=== PATIENT | female | born 2000 | race American Indian/Alaskan Native ===

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

== ENCOUNTER 2019-02-02 17:43 | Emergency (ER) | payer SELFPAY ==
--- NOTE | 2019-02-02 18:52 | Event Note ---
ED Screening Note Date of service: 02/02/19 Time: 18:49 ED Screening Note: This is a 18 y.o. F. that presents to the ER with nausea, vomiting, and dizziness. LMP 12/20/2018, A1 Positive test. [facility] first appointment at [place] next week. Reports similar symptoms with last . This initial assessment/diagnostic orders/clinical plan/treatment(s) is/are subject to change based on patients health status, clinical progression and re- assessment by fellow clinical providers in the ED. Further treatment and workup at subsequent clinical providers discretion. Patient/guardian urged not to elope from the ED as their condition may be serious if not clinically assessed and managed. Initial orders include: Labs
[2019-02-02] MEDS ORDERED: REGLAN IV ONE (19:26)
[2019-02-02] MEDS ORDERED: PEPCID IV ONE (19:26)
[2019-02-02] MEDS ORDERED: NACL 0.9% 1000 ML 1,000 ML IV ONE (19:26)
[2019-02-02 19:29] LABS: Basophils % (Auto) 0.4 % (0.0-1.8); Eosinophils % (Auto) 0.1 % (0.0-4.3); Hemoglobin 13.1 gm/dl (10.1-14.3); Lymphocytes % (Auto) 23.8 % (13.4-35.0); Mean Corpuscular HGB Conc 34 % (30-34); Mean Corpuscular Volume 88 fl (79-97); Monocytes # (Auto) 0.5 K/mm3 (0.0-0.8); Monocytes % (Auto) 6.1 % (0.0-7.3); Platelet Count 302 K/mm3 (140-440); Red Blood Count 4.42 M/mm3 (3.65-5.03); Red Cell Distribution Width 13.6 % (13.2-15.2)
[2019-02-02 19:48] LABS: BUN/Creatinine Ratio 13; Blood Urea Nitrogen 10 mg/dL (7-17); Calcium 9.1 mg/dL (8.4-10.2); Hemolysis Index 8
[2019-02-02 20:26] LABS: Alanine Aminotransferase 11 units/L (7-56); Albumin 4.2 g/dL (3.9-5); Bilirubin,Direct < 0.2 mg/dL (0-0.2)
--- NOTE | 2019-02-02 20:48 | Emergency Department Report ---
ED N/V/D HPI - General Chief complaint: Nausea/Vomiting/Diarrhea Stated complaint: /NAUSEA/LIGHTHEADED/WEAKNESS/VOMITING Time Seen by Provider: 02/02/19 18:49 Source: patient Mode of arrival: Ambulatory Limitations: No Limitations - History of Present Illness Initial comments: Patient is A1 18-year-old female who is approximately 6 weeks' gestation who presents to the ED with complaint of diffuse abdominal pain and intractable nausea and vomiting with lack of appetite and sore throat for the last 1 week. Patient states that she has not been able to tolerate any oral fluids or solid foods. Patient denies dizziness, vaginal bleeding, dysuria, urinary frequency and urgency, vaginal discharge, low back pain, headache, chest pain, shortness of breath, fever or chills. MD complaint: nausea, vomiting, abdominal pain -: Sudden, week(s) (1) Description of Vomiting: food contents, watery, bilious, blood-streaked Associated Abdominal Pain: Yes Location: diffuse Radiation: none Severity: severe Pain Scale: 7 Quality: cramping, aching Consistency: intermittent Improves with: none Worsens with: eating Associated Symptoms: denies other symptoms, loss of appetite, malaise, nausea/vomiting. denies: myalgias, chest pain, cough, diaphoresis, fever/chills, headaches, rash, dysuria, shortness of breath, syncope, weakness, other - Related Data Previous Rx's Medication Instructions Recorded Last Taken Type metroNIDAZOLE [Flagyl TAB] 500 mg PO Q12HR #14 tab 01/24/15 Unknown Rx traMADol [Ultram 50 MG tab] 50 mg PO Q6HR PRN #15 tablet 01/24/15 Unknown Rx Mag Hydrox/Aluminum Hyd/Simeth 20 ml PO QID PRN #1 bottle 11/15/15 Unknown Rx [Maalox Advanced Suspension] Promethazine [Phenergan] 25 mg PO Q6HR PRN #20 tab 11/15/15 Unknown Rx raNITIdine HCl [Zantac] 150 mg PO Q12H #30 tablet 11/15/15 Unknown Rx Azithromycin [Zithromax] 250 mg PO DAILY #6 tablet 06/25/16 Unknown Rx Doxylamine Succinate/Vit B6 2 each PO DAILY #20 tablet. 06/25/16 Unknown Rx [Solitario Meraz 10-10 mg Tablet] Anaonzaa41/Iron/Folate8/Ps-Dha 1 each PO DAILY #30 tab 06/25/16 Unknown Rx [Enbrace Hr Softgel] guaiFENesin 400 mg PO Q4H #24 tablet 06/25/16 Unknown Rx Acetaminophen 500 mg PO DAILY PRN #30 tablet 03/08/18 Unknown Rx 21/Iron Fu/Folic Acid 1 each PO DAILY #30 tablet 03/08/18 Unknown Rx [ Complete Caplet] Ibuprofen [Motrin] 600 mg PO Q8H PRN #20 tablet 06/28/18 Unknown Rx Ondansetron [Zofran Odt] 4 mg PO Q8HR PRN #14 tab.rapdis 08/15/18 Unknown Rx Promethazine [Phenergan] 25 mg PO Q6HR PRN #30 tab 02/03/19 Unknown Rx Promethazine [Phenergan] 25 mg IN Q6HR PRN #15 supp.rect 02/03/19 Unknown Rx Allergies Allergy/AdvReac Type Severity Reaction Status Date / Time No Known Allergies Allergy Verified 01/24/15 12:47 ED Review of Systems ROS: Stated complaint: /NAUSEA/LIGHTHEADED/WEAKNESS/VOMITING Other details as noted in HPI Constitutional: denies: chills, fever Eyes: denies: eye pain, eye discharge, vision change ENT: throat pain. denies: ear pain Respiratory: denies: cough, shortness of breath, wheezing Cardiovascular: denies: chest pain, palpitations Endocrine: no symptoms reported Gastrointestinal: abdominal pain, nausea, vomiting. denies: diarrhea, constipation, hematemesis, melena, hematochezia Genitourinary: denies: urgency, dysuria, frequency, hematuria, discharge, abnormal menses, dyspareunia Musculoskeletal: denies: back pain, joint swelling, arthralgia Skin: denies: rash, lesions Neurological: denies: headache, weakness, paresthesias Psychiatric: denies: anxiety, depression Hematological/Lymphatic: denies: easy bleeding, easy bruising ED Past Medical Hx - Past Medical History Hx Asthma: Yes Additional medical history: vaginal delivery x 1 - Surgical History Additional Surgical History: TUBES IN EARS - Social History Smoking Status: Never Smoker Substance Use Type: None - Medications Home Medications: Home Medications Medication Instructions Recorded Confirmed Last Taken Type metroNIDAZOLE [Flagyl TAB] 500 mg PO Q12HR #14 tab 01/24/15 Unknown Rx traMADol [Ultram 50 MG tab] 50 mg PO Q6HR PRN #15 tablet 01/24/15 Unknown Rx Mag Hydrox/Aluminum Hyd/Simeth 20 ml PO QID PRN #1 bottle 11/15/15 Unknown Rx [Maalox Advanced Suspension] Promethazine [Phenergan] 25 mg PO Q6HR PRN #20 tab 11/15/15 Unknown Rx raNITIdine HCl [Zantac] 150 mg PO Q12H #30 tablet 11/15/15 Unknown Rx Azithromycin [Zithromax] 250 mg PO DAILY #6 tablet 06/25/16 Unknown Rx Doxylamine Succinate/Vit B6 2 each PO DAILY #20 tablet.dr 06/25/16 Unknown Rx [Diclegis Dr 10-10 mg Tablet] Jcnfwxai92/Iron/Folate8/Ps-Dha 1 each PO DAILY #30 tab 06/25/16 Unknown Rx [Enbrace Hr Softgel] guaiFENesin 400 mg PO Q4H #24 tablet 06/25/16 Unknown Rx Acetaminophen 500 mg PO DAILY PRN #30 tablet 03/08/18 Unknown Rx 21/Iron Fu/Folic Acid 1 each PO DAILY #30 tablet 03/08/18 Unknown Rx [ Complete Caplet] Ibuprofen [Motrin] 600 mg PO Q8H PRN #20 tablet 06/28/18 Unknown Rx Ondansetron [Zofran Odt] 4 mg PO Q8HR PRN #14 tab.rapdis 08/15/18 Unknown Rx Promethazine [Phenergan] 25 mg PO Q6HR PRN #30 tab 02/03/19 Unknown Rx Promethazine [Phenergan] 25 mg IN Q6HR PRN #15 supp.rect 02/03/19 Unknown Rx ED Physical Exam - General Limitations: No Limitations General appearance: alert, in no apparent distress - Head Head exam: Present: atraumatic, normocephalic, normal inspection - Eye Eye exam: Present: normal appearance, PERRL, EOMI Pupils: Present: normal accommodation - ENT ENT exam: Present: normal exam, normal orophraynx, mucous membranes moist, TM's normal bilaterally, normal external ear exam - Neck Neck exam: Present: normal inspection, full ROM. Absent: tenderness, meningismus, lymphadenopathy, thyromegaly - Respiratory Respiratory exam: Present: normal lung sounds bilaterally. Absent: respiratory distress, wheezes, rales, rhonchi, stridor, chest wall tenderness, accessory muscle use, decreased breath sounds, prolonged expiratory - Cardiovascular Cardiovascular Exam: Present: regular rate, normal rhythm, normal heart sounds. Absent: systolic murmur, diastolic murmur, rubs, gallop - GI/Abdominal GI/Abdominal exam: Present: soft, normal bowel sounds. Absent: tenderness, rebound, hyperactive bowel sounds, hypoactive bowel sounds, organomegaly, mass - Rectal Rectal exam: Present: deferred - Extremities Exam Extremities exam: Present: normal inspection, full ROM, normal capillary refill - Back Exam Back exam: Present: normal inspection, full ROM. Absent: tenderness, CVA tenderness (R), CVA tenderness (L), muscle spasm, paraspinal tenderness, vertebral tenderness - Neurological Exam Neurological exam: Present: alert, oriented X3, CN II-XII intact, normal gait, reflexes normal - Psychiatric Psychiatric exam: Present: normal affect, normal mood - Skin Skin exam: Present: warm, dry, intact, normal color. Absent: rash ED Course Vital Signs 02/02/19 18:50 Temperature 98.3 F Pulse Rate 81 Respiratory 16 Rate Blood Pressure 141/75 O2 Sat by Pulse 97 Oximetry - Reevaluation(s) Reevaluation #1: 02/02/19 20:49 This is [id number] female who is approximately 6 weeks gestation who presents with a ED with intractable nausea and vomiting and abdominal pain. In the ED, patient's alert and oriented 3 and is not in distress, with normal vital signs. Labs were drawn and patient also treated in the ED for nausea and vomiting and also given normal saline 1 L IV bolus, and treated with antacids as well. Tr ansvaginal ultrasound was also ordered. On reevaluation, patient's nausea and vomiting is well controlled as well as pain. Patient passed oral fluid challenge in the ED. Transvaginal ultrasound shows a single live IUP of approximately 6 weeks and 1 day with heart rate of 103 bpm. Patient was discharged home on antiemetics and advised to follow-up with COATING OPERATOR physician in 2-3 days for reevaluation. Patient was advised to maintain complete pelvic rest and schedule an appointment with COATING OPERATOR physician as advised. Patient was however advised to return to the ED immediately if symptoms get worse. ED Medical Decision Making - Lab Data Result diagrams: 02/02/19 19:10 02/02/19 19:10 - Radiology Data Radiology results: report reviewed, image reviewed Findings [facility] [address] [place] [address] Ultrasound Report Signed Patient: BILLY RIVAS MR#: [id number] : 2000 Acct:[id number] Age/Sex: 18 / F ADM Date: 02/02/19 Loc: ED Attending Dr: Ordering Physician: CHICA ESPINOZA Date of Service: 02/02/19 Procedure(s): US OB transvaginal Accession Number(s): [id number] cc: CHICA ESPINOZA ULTRASOUND OBSTETRIC INDICATION / CLINICAL INFORMATION: abdominal pain. Clinical Gestational Age (GA): TECHNIQUE: Transabdominal and Transvaginal. COMPARISON: None available. FINDINGS: GESTATIONAL SAC: Well-defined oval shape and intrauterine in location. YOLK SAC: No significant abnormality. EMBRYO/FETUS: No significant abnormality. - [place]-Rump Length = 0.42 cm = 6 weeks, 1 day(s). - Heart Rate, beats per minute (if present) = 103 ADNEXA: No significant abnormality. FREE FLUID: None. ADDITIONAL FINDINGS: None. IMPRESSION: 1. Single, living intrauterine with estimated sonographic age of 6 weeks, 1 day(s). Signer Name: Mike Clark MD Signed: 02/02/2019 10:42 PM Workstation Name: [id number] Transcribed By: POPPY Dictated By: Mike Clark MD Electronically Authenticated By: Mike Clark MD Signed Date/Time: 02/02/19 2242 - Medical Decision Making This is [id number] female who is approximately 6 weeks gestation who presents with a ED with intractable nausea and vomiting and abdominal pain. In the ED, patient's alert and oriented 3 and is not in distress, with normal vital signs. Labs were drawn and patient also treated in the ED for nausea and vomiting and also given normal saline 1 L IV bolus, and treated with antacids as well. Transvaginal ultrasound was also ordered. On reevaluation, patient's nausea and vomiting is well controlled as well as pain. Patient passed oral fluid challenge in the ED. Transvaginal ultrasound shows a single live IUP of approximately 6 weeks and 1 day with heart rate of 103 bpm. Patient was discharged home on antiemetics and advised to follow-up with COATING OPERATOR physician in 2-3 days for reevaluation. Patient was advised to maintain complete pelvic rest and schedule an appointment with COATING OPERATOR physician as advised. Patient was however advised to return to the ED immediately if symptoms get worse. - Differential Diagnosis Hyperemesis Gravidarum; Abdominal pain; Critical care attestation.: If time is entered above; I have spent that time in minutes in the direct care o f this critically ill patient, excluding procedure time. ED Disposition Clinical Impression: Hyperemesis gravidarum Qualifiers: Weeks of gestation: less than 8 weeks Qualified Code(s): Z3A.01 - Less than 8 weeks gestation of Disposition: TO HOME OR SELFCARE Is pt being admited?: No Does the pt Need Aspirin: No Condition: Stable Instructions: Hyperemesis Gravidarum (ED), (ED) Additional Instructions: Maintain a complete pelvic rest, take medications with food, drink plenty of fluids and follow-up with your OB-BOND MANAGER physician in 2-3 days for reevaluation. Return to the ED immediately if symptoms get worse. Prescriptions: Promethazine [Phenergan] 25 mg PO Q6HR PRN #30 tab PRN Reason: Nausea Promethazine [Phenergan] 25 mg IN Q6HR PRN #15 supp.rect PRN Reason: Nausea Time of Disposition: 00:24 Print Language: MALTESE
[2019-02-02] MEDS ORDERED: ZOFRAN IV ONE (22:21)
--- NOTE | 2019-02-02 22:47 | Ultrasound Report ---
ULTRASOUND OBSTETRIC INDICATION / CLINICAL INFORMATION: abdominal pain. Clinical Gestational Age (GA): TECHNIQUE: Transabdominal and Transvaginal. COMPARISON: None available. FINDINGS: GESTATIONAL SAC: Well-defined oval shape and intrauterine in location. YOLK SAC: No significant abnormality. EMBRYO/FETUS: No significant abnormality. - [place]-Rump Length = 0.42 cm = 6 weeks, 1 day(s). - Heart Rate, beats per minute (if present) = 103 ADNEXA: No significant abnormality. FREE FLUID: None. ADDITIONAL FINDINGS: None. IMPRESSION: 1. Single, living intrauterine with estimated sonographic age of 6 weeks, 1 day(s). Signer Name: Mike Clark MD Signed: 02/02/2019 10:42 PM Workstation Name: [id number]
--- NOTE | 2019-02-02 22:49 | Ultrasound Report ---
Report for this exam was separately dictated, but the orders were not able to be linked electronicall y. Please refer to the report for pelvic ultrasound under the accession number [id number]. Signer Name: Mike Clark MD Signed: 02/02/2019 10:45 PM Workstation Name: [id number]
[2019-02-02 23:30] LABS: Bilirubin,Urine NEG (Negative); Blood,Urine NEG (Negative); Color,Urine Yellow (Yellow); Mucus,Urine 3+ /HPF; Urobilinogen,Urine < 2.0 mg/dL (<2.0)
[2019-02-02 23:33] LABS: HCG Qualitative,Urine Positive (Negative)
[2019-02-03] MEDS ORDERED: ZOFRAN IV ONE (00:54)
[2019-02-03 01:03] VITALS: BP 123/65
== END 2019-02-03 01:44 | disposition home or self-care (01) ==
LOC: ED 17:43
DX: O21.1 Hyperemesis gravidarum with metabolic disturbance (principal); O21.9 Vomiting of pregnancy, unspecified; O99.511 Diseases of the respiratory system complicating pregnancy, first trimester; J45.909 Unspecified asthma, uncomplicated; Z3A.01 Less than 8 weeks gestation of pregnancy; Z79.899 Other long term (current) drug therapy; Z96.22 Myringotomy tube(s) status; Z79.1 Long term (current) use of non-steroidal anti-inflammatories (NSAID)
CPT/HCPCS: 36415; 76801; 76817; 80048; 80076; 81001; 81025; 84702; 85025; 96361; 96374; 96375; 96376; 99283; J2405; J2765; J7030

== ENCOUNTER 2019-04-25 11:41 | Emergency (ER) | payer MEDICAID ==
--- NOTE | 2019-04-25 11:54 | Event Note ---
ED Screening Note Date of service: 04/25/19 Time: 11:50 ED Screening Note: Pt complains of 1 episode of emesis upon waking this morning now with lower abdominal pain and ower back pain radiating down the right leg denies fever, coffee ground emesis/hematemesis denies vaginal bleeding/discharge/dysuria This initial assessment/diagnostic orders/clinical plan/treatment(s) is/are subject to change based on patients health status, clinical progression and re- assessment by fellow clinical providers in the ED. Further treatment and workup at subsequent clinical providers discretion. Patient/guardian urged not to elope from the ED as their condition may be serious if not clinically assessed and managed. Initial orders include: US labs UA
[2019-04-25 13:16] LABS: Basophils % (Auto) 0.3 % (0.0-1.8); Eosinophils % (Auto) 0.1 % (0.0-4.3); Hematocrit 37.1 % (30.3-42.9); Hemoglobin 12.5 gm/dl (10.1-14.3); Lymphocytes # (Auto) 1.4 K/mm3 (1.2-5.4); Lymphocytes % (Auto) 16.9 % (13.4-35.0); Mean Corpuscular HGB Conc 34 % (30-34); Mean Corpuscular Volume 89 fl (79-97); Monocytes # (Auto) 0.4 K/mm3 (0.0-0.8); Monocytes % (Auto) 4.3 % (0.0-7.3); Platelet Count 257 K/mm3 (140-440); Red Blood Count 4.15 M/mm3 (3.65-5.03); Red Cell Distribution Width 14.4 % (13.2-15.2)
[2019-04-25] MEDS ORDERED: METOCLOPRAMIDE 10 MG/2 ML INJ IV ONE (13:18)
[2019-04-25] MEDS ORDERED: SODIUM CHLORIDE 0.9% 1000 ML 1,000 ML IV ONE (13:18)
[2019-04-25 13:34] LABS: BUN/Creatinine Ratio 13; Blood Urea Nitrogen 8 mg/dL (7-17); Hemolysis Index 1
--- NOTE | 2019-04-25 13:49 | Ultrasound Report ---
Limited transabdominal/transvaginal OB pelvic ultrasound INDICATION / CLINICAL INFORMATION: Check amniotic fluid volume. Leaking fluid. COMPARISON: 02/02/2019. FINDINGS: Transabdominal: Clinical dates are 17 weeks 6 days. The heart rate is 129 bpm. presentati on is cephalic. The placenta is located posteriorly, is grade 0 and is free of the os. Amniotic fluid volume is normal. The largest vertical pocket measures 3.7 cm. The uterine cervix measures 2.1 cm in length and the internal os is closed. There is minimal maternal right pelvocaliectasis. Transvaginal: The uterine cervix measures 3.8 cm in length and the internal os is closed. IMPRESSION: 1. Normal amniotic fluid volume. 2. Minimal right maternal pelvocaliectasis. Signer Name: Alexander Hanley MD Signed: 04/25/2019 1:45 PM Workstation Name: [id number]
--- NOTE | 2019-04-25 13:49 | Emergency Department Report ---
ED N/V/D HPI - General Chief complaint: Nausea/Vomiting/Diarrhea Stated complaint: 17WKS PREG/VOMITING/BACK PAIN Time Seen by Provider: 04/25/19 12:01 Source: patient Mode of arrival: Ambulatory Limitations: No Limitations - History of Present Illness Initial comments: This is a 18-year-old female nontoxic, well nourished in appearance, no acute signs of distress presents to the ED with c/o of nausea and vomiting weeks. Patient stated she is currently about 19 weeks and was seen by a [facility]CH PR[facility] OPERATOR HELPER that was normal. Patient also stated that lower pelvic pain that has resolved now. Patient describes vomiting as food content. Patient denies any abdominal pain, pelvic pain, vaginal bleeding, chest pain, short of breath, fever, chills, headache, stiff neck, numbness or tingling. Patient denies any diarrhea or constipation. Patient denies any recent travels. Patient denies any drug allergies or significant past medical history. MD complaint: nausea, vomiting -: week(s) Associated Abdominal Pain: No Radiation: none Pain Scale: 0 Improves with: none Worsens with: none Associated Symptoms: nausea/vomiting. denies: myalgias, chest pain, cough, diaphoresis, fever/chills, headaches, loss of appetite, malaise, rash, dysuria, shortness of breath, syncope, weakness - Related Data Previous Rx's Medication Instructions Recorded Last Taken Type metroNIDAZOLE [Flagyl TAB] 500 mg PO Q12HR #14 tab 01/24/15 Unknown Rx traMADol [Ultram 50 MG tab] 50 mg PO Q6HR PRN #15 tablet 01/24/15 Unknown Rx Mag Hydrox/Aluminum Hyd/Simeth 20 ml PO QID PRN #1 bottle 11/15/15 Unknown Rx [Maalox Advanced Suspension] Promethazine [Phenergan] 25 mg PO Q6HR PRN #20 tab 11/15/15 Unknown Rx raNITIdine HCl [Zantac] 150 mg PO Q12H #30 tablet 11/15/15 Unknown Rx Azithromycin [Zithromax] 250 mg PO DAILY #6 tablet 06/25/16 Unknown Rx Doxylamine Succinate/Vit B6 2 each PO DAILY #20 tablet. 06/25/16 Unknown Rx [Solitario Meraz 10-10 mg Tablet] Xexomvcx34/Iron/Folate8/Ps-Dha 1 each PO DAILY #30 tab 06/25/16 Unknown Rx [Enbrace Hr Softgel] guaiFENesin 400 mg PO Q4H #24 tablet 06/25/16 Unknown Rx Acetaminophen 500 mg PO DAILY PRN #30 tablet 03/08/18 Unknown Rx 21/Iron Fu/Folic Acid 1 each PO DAILY #30 tablet 03/08/18 Unknown Rx [ Complete Caplet] Ibuprofen [Motrin] 600 mg PO Q8H PRN #20 tablet 06/28/18 Unknown Rx Ondansetron [Zofran Odt] 4 mg PO Q8HR PRN #14 tab.rapdis 08/15/18 Unknown Rx Promethazine [Phenergan] 25 mg PO Q6HR PRN #30 tab 02/03/19 Unknown Rx Promethazine [Phenergan] 25 mg [place] Q6HR PRN #15 supp.rect 02/03/19 Unknown Rx Metoclopramide [Reglan] 10 mg PO TID PRN #20 tab 04/25/19 Unknown Rx Allergies Allergy/AdvReac Type Severity Reaction Status Date / Time No Known Allergies Allergy Verified 01/24/15 12:47 ED Review of Systems ROS: Stated complaint: 17WKS PREG/VOMITING/BACK PAIN Other details as noted in HPI Constitutional: denies: chills, fever Eyes: denies: eye pain, eye discharge, vision change ENT: denies: ear pain, throat pain Respiratory: denies: cough, shortness of breath, wheezing Cardiovascular: denies: chest pain, palpitations Endocrine: no symptoms reported Gastrointestinal: nausea, vomiting. denies: abdominal pain, diarrhea Genitourinary: denies: urgency, dysuria, discharge Musculoskeletal: denies: back pain, joint swelling, arthralgia Skin: denies: rash, lesions Neurological: denies: headache, weakness, paresthesias Psychiatric: denies: anxiety, depression Hematological/Lymphatic: denies: easy bleeding, easy bruising ED Past Medical Hx - Past Medical History Previous Medical History?: Yes Hx Asthma: Yes Additional medical history: vaginal delivery x 1 - Surgical History Past Surgical History?: Yes Additional Surgical History: TUBES IN EARS - Social History Smoking Status: Never Smoker Substance Use Type: None - Medications Home Medications: Home Medications Medication Instructions Recorded Confirmed Last Taken Type metroNIDAZOLE [Flagyl TAB] 500 mg PO Q12HR #14 tab 01/24/15 Unknown Rx traMADol [Ultram 50 MG tab] 50 mg PO Q6HR PRN #15 tablet 01/24/15 Unknown Rx Mag Hydrox/Aluminum Hyd/Simeth 20 ml PO QID PRN #1 bottle 11/15/15 Unknown Rx [Maalox Advanced Suspension] Promethazine [Phenergan] 25 mg PO Q6HR PRN #20 tab 11/15/15 Unknown Rx raNITIdine HCl [Zantac] 150 mg PO Q12H #30 tablet 11/15/15 Unknown Rx Azithromycin [Zithromax] 250 mg PO DAILY #6 tablet 06/25/16 Unknown Rx Doxylamine Succinate/Vit B6 2 each PO DAILY #20 tablet.dr 06/25/16 Unknown Rx [Diclegis Dr 10-10 mg Tablet] Tlqepyhm58/Iron/Folate8/Ps-Dha 1 each PO DAILY #30 tab 06/25/16 Unknown Rx [Enbrace Hr Softgel] guaiFENesin 400 mg PO Q4H #24 tablet 06/25/16 Unknown Rx Acetaminophen 500 mg PO DAILY PRN #30 tablet 03/08/18 Unknown Rx 21/Iron Fu/Folic Acid 1 each PO DAILY #30 tablet 03/08/18 Unknown Rx [ Complete Caplet] Ibuprofen [Motrin] 600 mg PO Q8H PRN #20 tablet 06/28/18 Unknown Rx Ondansetron [Zofran Odt] 4 mg PO Q8HR PRN #14 tab.rapdis 08/15/18 Unknown Rx Promethazine [Phenergan] 25 mg PO Q6HR PRN #30 tab 02/03/19 Unknown Rx Promethazine [Phenergan] 25 mg NJ Q6HR PRN #15 supp.rect 02/03/19 Unknown Rx Metoclopramide [Reglan] 10 mg PO TID PRN #20 tab 04/25/19 Unknown Rx ED Physical Exam - General Limitations: No Limitations General appearance: alert, in no apparent distress - Head Head exam: Present: atraumatic, normocephalic - Neck Neck exam: Present: normal inspection, full ROM. Absent: tenderness, meningismus, lymphadenopathy - Respiratory Respiratory exam: Present: normal lung sounds bilaterally. Absent: respiratory distress, wheezes, rales, rhonchi, stridor, chest wall tenderness, accessory muscle use, decreased breath sounds, prolonged expiratory - Cardiovascular Cardiovascular Exam: Present: regular rate, normal rhythm, normal heart sounds. Absent: bradycardia, tachycardia, irregular rhythm, systolic murmur, diastolic murmur, rubs, gallop - GI/Abdominal GI/Abdominal exam: Present: soft, normal bowel sounds. Absent: distended, tenderness, guarding, rebound, rigid, diminished bowel sounds - Extremities Exam Extremities exam: Present: full ROM - Back Exam Back exam: Present: normal inspection, full ROM. Absent: tenderness, CVA tenderness (R), CVA tenderness (L), muscle spasm, paraspinal tenderness, vertebral tenderness, rash noted - Neurological Exam Neurological exam: Present: alert, oriented X3, normal gait - Psychiatric Psychiatric exam: Present: normal affect, normal mood - Skin Skin exam: Present: warm, dry, intact, normal color. Absent: rash ED Course Vital Signs 04/25/19 04/25/19 11:46 13:37 Temperature 99.0 F Pulse Rate 98 H Respiratory 18 17 Rate Blood Pressure 113/71 O2 Sat by Pulse 99 Oximetry - Reevaluation(s) Reevaluation #1: 04/25/19 13:49 Patient is speaking in full sentences with no signs of distress noted. ED Medical Decision Making - Lab Data Result diagrams: 04/25/19 12:05 04/25/19 12:05 - Medical Decision Making This is a 18-year-old female that presents with hyperemesis gravidarum. Patient is stable and was examined by me. There is no abdominal tenderness. Labs obtained. UA obtained. Vital signs are stable prior to discharge. Patient received Reglan and 1L Normal saline in the ED which patient stated symptoms has resovled and subsided. A by mouth challenge has been obtained and patient tolerated well with no nausea vomiting. Patient was also instructed to Follow-up with a OBGYN doctor in 3-5 days or if symptoms worsen and continue return to emergency room as soon as possible. At time of discharge, the patient does not seem toxic or ill in appearance. No acute signs of distress noted. Patient agrees to discharge treatment plan of care. No further questions noted by the patient. Critical care attestation.: If time is entered above; I have spent that time in minutes in the direct care of this critically ill patient, excluding procedure time. ED Disposition Clinical Impression: Hyperemesis gravidarum Disposition: DC-01 TO HOME OR SELFCARE Is pt being admited?: No Does the pt Need Aspirin: No Condition: Stable Instructions: Hyperemesis Gravidarum (ED) Additional Instructions: Follow-up with a OBGYN doctor in 3-5 days or if symptoms worsen and continue return to emergency room as soon as possible. Prescriptions: Metoclopramide [Reglan] 10 mg PO TID PRN #20 tab PRN Reason: Nausea Referrals: [facility] MD MILDRED [Primary Care Provider] - 3-5 Days PRIMARY CAREMD [Referring] - 3-5 Days BERTHA HWANG MD [Staff Physician] - 3-5 Days [facility] [Provider Group] - 3-5 Days Forms: Work/School Release Form(ED)
[2019-04-25 14:31] LABS: Bilirubin,Urine NEG (Negative); Blood,Urine NEG (Negative); Color,Urine Yellow (Yellow); Mucus,Urine 1+ /HPF; Protein,Urine <15 mg/dL mg/dL (Negative); Urobilinogen,Urine < 2.0 mg/dL (<2.0); WBC,Urine < 1.0 /HPF (0.0-6.0)
[2019-04-25 15:00] LABS: HCG Qualitative,Urine Positive (Negative)
[2019-04-25 15:15] VITALS: BP 115/74
== END 2019-04-25 15:14 | disposition home or self-care (01) ==
LOC: ED 11:41
DX: O21.0 Mild hyperemesis gravidarum (principal); O99.512 Diseases of the respiratory system complicating pregnancy, second trimester; J45.909 Unspecified asthma, uncomplicated; Z96.22 Myringotomy tube(s) status; Z79.899 Other long term (current) drug therapy; Z3A.17 17 weeks gestation of pregnancy
CPT/HCPCS: 36415; 76815; 76817; 80048; 81001; 81025; 85025; 96361; 96374; 99284; J2765; J7030

== ENCOUNTER 2019-08-23 16:41 | Outpatient (CLI) | payer MEDICAID ==
[2019-08-23] MEDS ORDERED: LACTATED RINGERS 500 ML IV ONE (16:50)
[2019-08-23] MEDS: TERBUTALINE 1 MG/1 ML INJ SUB-Q SCH ×2 (18:53→19:26)
[2019-08-23 20:04] VITALS: BP 141/63
== END 2019-08-23 20:14 | disposition home or self-care (01) ==
LOC: TRG 16:41
PROVIDERS: ATTEND Obstetrics & Gynecology
DX: O62.9 Abnormality of forces of labor, unspecified (principal); Z3A.35 35 weeks gestation of pregnancy
CPT/HCPCS: 59025; 96372; J3105; J7120; 96360

== ENCOUNTER 2020-06-06 12:27 | Emergency (ER) | payer MEDICAID ==
[2020-06-06 12:43] VITALS: BP 143/82
--- NOTE | 2020-06-06 12:54 | Event Note ---
ED Screening Note Date of service: 06/06/20 Time: 12:53 ED Screening Note: 19-year-old -[place] female presents to the emergency room stating that she had a home test and it was positive. Patient states that she has been having light bleeding 3 days ago and yesterday heavier bleeding with clots. She admits to cramping in her lower back. Denies any dysuria. Last menstrual period was 05/07/2020. 3 para 2. This initial assessment/diagnostic orders/clinical plan/treatment(s) is/are subject to change based on patients health status, clinical progression and re- assessment by fellow clinical providers in the ED. Further treatment and workup at subsequent clinical providers discretion. Patient/guardian urged not to elope from the ED as their condition may be serious if not clinically assessed and managed. Initial orders include:
[2020-06-06 14:24] LABS: Basophils % (Auto) 0.8 % (0.0-1.8); Eosinophils % (Auto) 0.7 % (0.0-4.3); Hematocrit 39.7 % (30.3-42.9); Lymphocytes % (Auto) 35.2 % (13.4-35.0); Mean Corpuscular HGB Conc 33 % (30-34); Mean Corpuscular Volume 85 fl (79-97); Monocytes # (Auto) 0.3 K/mm3 (0.0-0.8); Monocytes % (Auto) 4.6 % (0.0-7.3); Platelet Count 319 K/mm3 (140-440); Red Blood Count 4.66 M/mm3 (3.65-5.03); Red Cell Distribution Width 14.5 % (13.2-15.2)
[2020-06-06 14:33] LABS: Bilirubin,Urine NEG (Negative); Blood,Urine MOD (Negative); Color,Urine Yellow (Yellow); Protein,Urine <15 mg/dL mg/dL (Negative); Urobilinogen,Urine < 2.0 mg/dL (<2.0)
[2020-06-06 14:35] LABS: Alanine Aminotransferase 13 units/L (7-56); Albumin 4.3 g/dL (3.9-5); BUN/Creatinine Ratio 15; Blood Urea Nitrogen 12 mg/dL (7-17); Calcium 9.5 mg/dL (8.4-10.2); Hemolysis Index 20
--- NOTE | 2020-06-06 15:35 | Emergency Department Report ---
ED Female HPI - General Chief complaint: Vaginal Bleeding Stated complaint: VAG BLEED Time Seen by Provider: 06/06/20 15:05 Source: patient Mode of arrival: Ambulatory Limitations: No Limitations - History of Present Illness Initial comments: 19-year-old female with no significant past medical history presents to the ER today complaining of vaginal bleeding. Patient states that she started bleeding about 3 days ago. She states that the bleeding started off light, but has since become heavier and she is passing clots. She states that she has been changing about 8 pads per day since the bleeding started. She reports associated lower abdominal intermittent cramping but she is also been having these burning epigastric pain as well. She denies any nausea, vomiting, diarrhea, abnormal vaginal discharge or UTI symptoms. She denies any fever or chills. She states that she did take a home test about 1 week ago and was positive. She only took 1 test. Her last menstrual cycle was April 28. This will be her third , she has 2 living kids at home, no history of miscarriages or abortions. Complaint: vaginal bleeding -: Sudden, days(s) (3) - Related Data Previous Rx's Medication Instructions Recorded Last Taken Type Famotidine [Pepcid] 40 mg PO QHS #30 tablet 06/06/20 Unknown Rx Ibuprofen [Motrin] 600 mg PO Q8H PRN #20 tablet 06/06/20 Unknown Rx Allergies Allergy/AdvReac Type Severity Reaction Status Date / Time No Known Allergies Allergy Verified 01/24/15 12:47 ED Review of Systems ROS: Stated complaint: VAG BLEED Other details as noted in HPI Comment: All other systems reviewed and negative Constitutional: denies: chills, fever Gastrointestinal: abdominal pain. denies: nausea, diarrhea Genitourinary: abnormal menses Musculoskeletal: denies: back pain, joint swelling, arthralgia Skin: denies: rash, lesions Neurological: denies: headache, weakness, paresthesias Psychiatric: denies: anxiety, depression ED Past Medical Hx - Past Medical History Hx Hypertension: No Hx Congestive Heart Failure: No Hx Diabetes: No Hx Deep Vein Thrombosis: No Hx Renal Disease: No Hx Sickle Cell Disease: No Hx Seizures: No Hx Asthma: No Hx COPD: No Hx HIV: No Additional medical history: vaginal delivery x 1 - Surgical History Past Surgical History?: Yes Additional Surgical History: TUBES IN EARS - Social History Smoking Status: Never Smoker - Medications Home Medications: Home Medications Medication Instructions Recorded Confirmed Last Taken Type Famotidine [Pepcid] 40 mg PO QHS #30 tablet 06/06/20 Unknown Rx Ibuprofen [Motrin] 600 mg PO Q8H PRN #20 tablet 06/06/20 Unknown Rx ED Physical Exam - General Limitations: No Limitations General appearance: alert, in no apparent distress - Eye Eye exam: Present: normal appearance, PERRL, EOMI - ENT ENT exam: Present: normal exam, mucous membranes moist - Respiratory Respiratory exam: Present: normal lung sounds bilaterally. Absent: respiratory distress - Cardiovascular Cardiovascular Exam: Present: regular rate, normal rhythm, normal heart sounds - GI/Abdominal GI/Abdominal exam: Present: soft. Absent: distended, tenderness - Neurological Exam Neurological exam: Present: alert, oriented X3, CN II-XII intact, normal gait - Psychiatric Psychiatric exam: Present: normal affect, normal mood - Skin Skin exam: Present: intact ED Course Vital Signs 06/06/20 12:43 Temperature 98.2 F Pulse Rate 90 Respiratory 18 Rate Blood Pressure 143/82 [Right] O2 Sat by Pulse 100 Oximetry ED Medical Decision Making - Lab Data Result diagrams: 06/06/20 13:40 06/06/20 13:40 - Medical Decision Making [id number] --19-year-old female presented to the ER today complaining of abnormal vaginal bleeding started about 3 days ago. She had taken a home test about a week ago it was positive. Her last menstrual cycle was April 28. She reported associated epigastric burning, and lower abdominal cramping but otherwise no other symptoms. Labs reviewed--CBC normal with a normal white count and hemoglobin and hematocrit as well as a normal platelet count. CMP also normal. Quant hCG less than 2. Urinalysis showed no UTI. Patient is well-appearing, not toxic, she does not appear to be in any acute pain no respiratory distress. Physical exam show a soft nontender abdomen. Vital signs are stable. Patient's history, physical exam and diagnostic findings at this time is not concerning for , appendicitis, ovarian torsion or tubo-ovarian abscess, kidney stone, or any other significant intra- abdominal/intrapelvic pathology or requires further emergency room treatment, admission or consultation at this time. Discussed the results with the patient. The bleeding that she is having could be a late onset of her menstrual cycle. Also informed her that the burning epigastric pain that she has could be related to gastritis. Discussed treatment plan with patient. Patient expressed understanding of instructions and agree with plan. Patient was stable at time of discharge. Critical care attestation.: If time is entered above; I have spent that time in minutes in the direct care of this critically ill patient, excluding procedure time. ED Disposition Clinical Impression: Abnormal uterine bleeding, Gastritis Disposition: TO HOME OR SELFCARE Is pt being admited?: No Does the pt Need Aspirin: No Condition: Stable Instructions: Gastritis, Adult, [id number], Abnormal Uterine Bleeding Additional Instructions: Take the medication prescribed here as directed. Follow-up closely with your primary care doctor and [facility]. Return to the ER if your symptoms changes or worsens in any way. Prescriptions: Famotidine [Pepcid] 40 mg PO QHS #30 tablet Ibuprofen [Motrin] 600 mg PO Q8H PRN #20 tablet PRN Reason: Pain Referrals: HERBER TABARES MD [Staff Physician] - 3-5 Days Time of Disposition: 15:49
== END 2020-06-06 16:04 | disposition home or self-care (01) ==
LOC: ED 12:27
DX: K29.70 Gastritis, unspecified, without bleeding (principal); N93.9 Abnormal uterine and vaginal bleeding, unspecified; Z98.890 Other specified postprocedural states; Z79.1 Long term (current) use of non-steroidal anti-inflammatories (NSAID); Z79.899 Other long term (current) drug therapy
CPT/HCPCS: 36415; 80053; 81001; 83690; 84702; 85025; 86900; 86901